=== PATIENT | female | born 1980 ===

== ENCOUNTER 2020-08-27 07:35 | Outpatient (NON) | payer BC, SELFPAY ==
[2020-08-27 17:23] LABS: SARS-CoV-2 RNA PCR Positive
== END 2020-08-27 07:36 ==
PROVIDERS: Visit Provider Internal Medicine
DX: U07.1 COVID-19 (principal)
CPT/HCPCS: 87635; C9803; U0003

== ENCOUNTER 2021-09-30 10:37 | Emergency (ER) | payer BC, SELFPAY ==
[2021-09-30 10:50] VITALS: BP 120/73; PULSE 80; RESP 16; TEMP 36.8; O2SAT 99
--- NOTE | 2021-09-30 12:09 | ED.NAVMDI ---
HPI - Nausea/Vomiting/Diarrhea General Chief complaint: Nausea/Vomiting/Diarrhea Stated complaint: Diarrhea Source: patient and RN notes reviewed Mode of arrival: ambulatory History of Present Illness HPI Narrative: This is a 41-year-old female that just recently returned from the [facility] with complaints of diarrhea. Patient notes for the last couple days she has been having diarrhea. She did use the walker to brush her teeth. She did use Pepcid with no relief. The patient denies SOB, CP, palpitation, extremity numbness, lightheadedness, dizziness, constipation, nausea and vomiting chills, or fever. MD elicited complaint: diarrhea Related Data Allergies Allergy/AdvReac Type Severity Reaction Status Date / Time Cephalosporins Allergy Mild Unknown Verified 09/30/21 12:09 cefaclor Allergy Unknown Anaphylactic Verified 09/30/21 12:09 Shock latex Allergy Unknown Unknown Verified 09/30/21 12:09 ranitidine Allergy Unknown swelling Verified 09/30/21 12:09 of lips RANITIDINE HCL Allergy Unknown SWELLING Uncoded 09/09/14 15:16 OF LIPS Review of Systems Review of Systems: A 14 organ system Review of Systems was performed and pertinent positives included in the HPI, otherwise remaining ROS is negative. [facility] Family History Family History Grandparent Diabetes mellitus Family history of glaucoma Family history of anemia Carcinoma of colon Family history of Alzheimer's disease Family history of malignant neoplasm of urinary bladder Family history of congestive heart failure Mother Patient's mother is in good health Father Family history of cardiovascular disease Family history of headache disorder Social History Social History Smoking status: Never smoker Alcohol intake: never Exam Narrative: GENERAL: This is a well-nourished, well-developed patient, in no apparent distress. HEAD: normocephalic, atraumatic. EYES: PERRL. Sclera clear/white. Vision is grossly intact. EARS: External ears normal, auditory canals clear and without drainage, TMs normal without perforation. Hearing grossly intact. NOSE: External nose normal with no obvious nasal discharge, nares without redness, no rhinorrhea. THROAT: Mucous membranes moist, posterior pharynx clear. NECK: Neck supple, non-tender without lymphadenopathy, masses or thyromegaly. CARDIOVASCULAR: Regular rate and rhythm without murmurs, gallops, or rubs. RESPIRATORY: Clear to auscultation. Breath sounds equal bilaterally. No wheezes, rales, or rhonchi. GASTROINTESTINAL: Abdomen soft, non-tender, nondistended. Bowel sounds are active. No hepato-splenomegaly, or palpable masses. No guarding. SKIN: warm, intact with no suspicious lesions or rash, good texture and turgor. NEURO: awake, alert, and oriented to person, place and time. There were no obvious focal neurologic abnormalities. Steady gait EXTREMITIES: Normal range of motion. No edema. No calf tenderness. Negative Homans sign bilaterally. BACK: Nontender without deformity or crepitance. No flank tenderness. Course Course Emergency Course: Patient will be treated for traveling diarrhea with Cipro and azithromycin x5 days Vital Signs Vital signs: Vital Signs Temperature 98.2 F 09/30/21 10:50 Pulse Rate 80 09/30/21 10:50 Respiratory Rate 16 09/30/21 10:50 Blood Pressure 120/73 09/30/21 10:50 Pulse Oximetry 99 09/30/21 10:50 Temperature 98.2 F 09/30/21 10:50 Pulse Rate 80 09/30/21 10:50 Respiratory Rate 16 09/30/21 10:50 Blood Pressure 120/73 09/30/21 10:50 Pulse Oximetry 99 09/30/21 10:50 MDM - Nausea/Vomiting/Diarrhea Differential Diagnosis Differential diagnosis: Likely traveler's diarrhea, gastroenteritis, clostridium difficile infection and dehydration Discharge Plan Discharge Clinical Impression: Traveler's diarrhea Patient Dispositio
== END 2021-09-30 12:00 | disposition home or self-care (01) ==
PROVIDERS: Emergency Provider Nurse Practitioner
DX: A09 Infectious gastroenteritis and colitis, unspecified (principal)
CPT/HCPCS: 99213; G0463

== ENCOUNTER → 2022-08-19 09:11 | Outpatient (CLI) | payer OTHER, BC, SELFPAY ==
--- NOTE | ~2022-08-19 | XR_ITS ---
XR knee RT min 4V 08/19/2022 09:34 INDICATION: Right knee pain PROCEDURE: 4 views right knee COMPARISON: No prior studies for comparison. FINDINGS: Fracture, dislocation or subluxation is not identified. No significant joint effusion. The soft tissues appear within normal limits. No foreign bodies are identified. IMPRESSION: 1: NO ACUTE BONE OR JOINT ABNORMALITY IDENTIFIED. Reviewed, dictated and finalized at location B.
== END ==
PROVIDERS: PCP Family Medicine Adolescent Medicine; Visit Provider Physician Assistant
DX: M25.561 Pain in right knee (principal)
CPT/HCPCS: 73564